=== PATIENT | male | born 1990 | race Two or more races ===

== ENCOUNTER 2023-04-13 22:15 | Emergency (ER) | payer SELFPAY ==
[2023-04-13 22:17] VITALS: BP 143/88
--- NOTE | 2023-04-13 22:55 | ED.GENMED ---
History of Present Illness
General
Chief Complaint: Foreign Body Ingestion
Source: patient and family
Exam Limitations: none
Time Seen by Provider: 04/13/23 22:36
Nursing documentation reviewed up to this point in time: agreed with
Travel History
Have you had any contact with someone who has COVID-19?: No
Do you have any symptoms of coronavirus? Fever > 100 degrees, chills, cough, shortness of breath, sore throat, loss of taste or smell, muscle aches, or headache?: No
History of Present Illness
History of Present Illness:
32-year-old male foreign body sensation in his throat after eating a piece of chocolate with some plastic wrapping still on it no shortness of breath no cough no fever occurred a few days ago there is no metal on the chocolate
Past History
Past History
ED Past Medical History: None
ED Past Surgical History: None
Social History
Tobacco: Non-smoker
Alcohol: None
Drug: None
Living: with family
Employment: Employed
Review of Systems
Review of Systems
All Other Systems: Not applicable
EENT: Reports sore throat
Respiratory: Reports no symptoms
Cardiac: Reports no symptoms
ABD/GI: Reports no symptoms
: Reports no symptoms
Musculoskeletal: Reports no symptoms
Skin: Reports no symptoms
Phy Exam
Physical Exam
Physical Exam:
Physical Exam
General: no apparent distress, not acutely ill
Neck: Posterior pharynx is clear no foreign body seen no abnormality seen no drooling no trismus
Heart: s1/s2 regular rate and rhythm, no murmur. equal radial pulses.
Lungs: no acute respiratory distress. clear bilaterally
Neuro: alert and oriented. no focal neurological deficits
Skin: no rash
Psychiatric: well kept. interactive and cooperative
Extremities: no edema.
Course
Orders/Labs/Results
Orders:
Orders
04/13/23 22:54
Mag Hydrox/Al Hydrox/Simeth [Maalox] 30 ml Phenobarb/Hyoscy/Atropine/Scop [] 10 ml Viscous Lidocaine 2% [Xylocaine Viscous Cup] 10 ml PO NOW
04/13/23 23:00
Phenobarb/Hyoscy/Atropine/Scop [] 10 ml .ROUTE .STK-MED ONE
04/13/23 23:01
Mag Hydrox/Al Hydrox/Simeth [Maalox] 30 ml .ROUTE .STK-MED ONE
Viscous Lidocaine 2% [Xylocaine Viscous Cup] 15 ml .ROUTE .STK-MED ONE
Vital Signs
Initial and Last Documented VS:
Initial Vital Signs
Temp Pulse Resp BP Pulse Ox
98.2 F 66 18 143/88 100
04/13/23 22:17 04/13/23 22:17 04/13/23 22:17 04/13/23 22:17 04/13/23 22:17
Last Documented Vital Signs
Temp Pulse Resp BP Pulse Ox
98.2 F 66 18 143/88 100
04/13/23 22:17 04/13/23 22:17 04/13/23 22:17 04/13/23 22:17 04/13/23 22:17
MDM/Problems Addressed
Differential Diagnosis Includes:
Foreign body ingestion foreign body sensation no signs abscess no retching very low suspicion for perforation
*Pulse Oximetry
Patient hypoxic: no
*Critical Care Note
Total Time (30-74mins, 75-104mins- exclusive of procedures): Not Applicable
Update Note
Update Note:
Update patient with foreign body sensation after eating a piece of chocolate with some plastic wrapper nothing seen on exam he is well-appearing*supportive care provided reassurance
ED Attending Note
-
Portions of this chart may have been created with voice recognition software.� Occasional wrong word or��sound alike� substitutions may have occurred due to the inherent limitations of voice recognition software.
Discharge Plan
Departure
Patient Disposition: Home (Routine Discharge)
Date of Disposition: 04/13/23
Time of Disposition: 23:06
Patient with high blood pressure during this ER visit?: No
Condition: Good
Discharge Problem:
Ingestion of foreign body
Instructions: Swallowed Objects, Adult (DC)
Prescriptions:
New
alum-mag hydroxide-simeth [Antacid] 200-200-20 mg/5 mL suspension
10 ml PO QID PRN (Reason: indigestion) Qty: 1000 0RF
Referrals:
Arabella Kline, FINANCIAL AID DIRECTOR [Family Provider] -
Interventions
Interventions:
*Risk Screen - Suicide Last Done: 04/13/23 22:17
*General Assessment Last Done: 04/13/23 22:17
*Neglect/Abuse Screening Last Done: 04/13/23 22:17
[2023-04-13] MEDS: MAALOX 40 PO (23:02)
== END 2023-04-13 23:27 | disposition home or self-care (01) ==
LOC: EMR 22:15
PROVIDERS: EMERGENCY PHYSICIAN Emergency Medicine; FAMILY PHYSICIAN Nurse Practitioner Adult Health
DX: T18.9XXA Foreign body of alimentary tract, part unspecified, initial encounter (principal); W44.9XXA Unspecified foreign body entering into or through a natural orifice, initial encounter; J02.9 Acute pharyngitis, unspecified
CPT/HCPCS: 99283